=== PATIENT | male | born 1955 | race Caucasian/White ===

== ENCOUNTER 2018-12-04 16:04 | Emergency (ER) | payer BC ==
--- OUTSIDE RECORDS SUMMARY | 2018-12-04 16:08 | XMS REPORT | Continuity of Care Document ---
:1955 External Reference #:[id number] Author Name Isamar Valdes Care Team Providers Name Role Phone Britney Urbina MD Primary Care Physician Unavailable Payers Date Identification Numbers Payment Provider Subscriber Policy Number: [id number] [facility] Camelia Mead PayID: [id number] [address] [place] [address] Problems Active Problems Provider Date Gastroesophageal reflux disease Maura Ricardo M.D., JAKE Onset: 02/17/2011 Hyperlipidemia Maura Ricardo M.D., JAKE Onset: 02/17/2011 Bicuspid aortic valve Britney Urbina M.D. Onset: 05/10/2014 Intrinsic asthma Britney Urbina M.D. Onset: 05/10/2014 Allergic rhinitis Britney Urbina M.D. Onset: 05/10/2014 Anxiety disorder Britney Urbina M.D. Onset: 05/10/2014 Note: used to be depressed /imipramine controls sx of anxiety Family history of renal cell carcinoma Britney Urbina M.D. Onset: 05/10/2014 Note: brother at age 62 Aortic valve disorder Blayne Weir M.D., [facility], [facility] Onset: 07/25/2014 Note: bicuspid aortic valve s/p AVR Encounter for planned postprocedural Zurdo Seymour M.D., [facility], [facility] Onset: wound closure Multi vessel coronary artery disease Britney Urbina M.D. Onset: 11/03/2016 Cyst of kidney Britney Urbina M.D. Onset: 02/03/2017 Note: L complex cyst Thoracic aortic ectasia Blayne Weir M.D., [facility], Onset: 04/28/2017 [facility] Obstructive sleep apnea syndrome Stephanie Garvin DNP, RN, [facility] Onset: Secondary hypertension Stephanie Garvin DNP, RN, [facility] Onset: 08/05/2017 Note: NSAIDS Psoriasis Britney Urbina M.D. Onset: 04/19/2018 Heart valve replacement Blayne Weir M.D., [facility] Onset: 08/09/2018 Inactive Problems Aortic valve stenosis Britney Urbina M.D. Onset: 05/10/2014 Inactive: 12/31/2016 Note: severe by echo 07/04 Resolved Problems Difficulty breathing Blayne Weir M.D., [facility] Onset: 07/25/2014 Resolved: 04/19/2018 Family History Date Family Member(s) Observation Comments General Kidney Cancer brother at age 62 General Hypertension General Diabetes General [place] : (age 49 Father due to [place] Years) Father Diabetes Type II : (age 46 Mother due to pulmonary Years) embolism Children 4 First Brother due to Cancer () - metastatic RCC Social History Type Date Description Comments Sex Unknown Marital Status 2 Times Marital Status Lives With Alone 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 Tobacco Use Start: Unknown Never Smoked Cigarettes Smoking Status Reviewed: 11/08/18 Never Smoked Cigarettes ETOH Use Consumes 2 glasses of wine per day Tobacco Use Start: Unknown Patient has never smoked Recreational Drug Use Denies Drug Use Exercise Type/Frequency Walks daily 30 mins to hr per day Allergies, Adverse Reactions, Alerts Active Allergies Reaction Severity Comments Date Keflex dirrehea Moderate 02/17/2011 Pollen 07/25/2014 Bee Sting anaphylaxis to yellow jacket 05/02/2015 Latex swelling 01/21/2017 Medications Active Medications SIG Qnty Indications Ordering Date Provider Amlodipine Besylate 1 by mouth every day 90tabs I10 Britney Urbina, 2018 M.D. 10mg Tablets Alprazolam take 1 tablet by 30tabs F41.1 Elizabeth Madden, 07/21/2018 1mg mouth 2 times a day N.P. Tablets if needed for anxiety Shingrix intramuscular x 1 1units Britney Urbina, 04/19/2018 50mcg/0.5ML then repeat in 4 M.D. Suspension Rec months Amoxicillin take 4 tablets by 4tabs Blayne Kenyon 12/29/2017 500mg mouth 1 hour before Fox Weir, Tablets dental procedure THAI SKY Atorvastatin Calcium take 1 tablet by 90tabs Britney Urbina, 11/26/2017 mouth once daily at M.D. 20mg Tablets bedtime Omeprazole 1 by mouth bid 60caps Britney Urbina, 01/06/[address] Zelaya prn wasp stings Unknown 0.15mg/0.15ML Solution Auto-Inject Probiotic 1 by mouth every day Unknown Capsules Aspir-81 1 by mouth every day Unknown 81mg Tablets Multi-Vitamin 1 by mouth every day Unknown Tablets History Medications Metoprolol Tartrate 1 by mouth once a 90tabs I25.10 Blayne Kenyon 11/01/2018 - day Fox Weir, 11/01/2018 75mg Tablets THAI SKY Amlodipine Besylate 1 by mouth every 90tabs I10 Britney Urbina, 2018 - 5mg day M.D. 11/02/2018 Tablets Ciprofloxacin HCL 1 tab by mouth 56tabs N41.1 Britney Urbina, 11/04/2017 - 500mg twice a day X 28 M.D. 12/02/2017 Tablets days Sulfamethoxazole/Trim 1 tablet by mouth 60tabs N41.0 Bao Stanton NP 2017 - ethoprim DS every 12 hours x 10/17/2017 800-160mg 4 weeks Tablets Prednisone 1 tab at 13 hour 3tabs Britney Urbina, 04/01/2017 - 50mg Tablets before the M.D. 06/10/2017 procedure , then at 7 hours then at [address] scan Benadryl Allergy take 1 tablets 1tabs Britney Urbina, 04/01/2017 - 25mg once 1 hour M.D. 08/04/[address] scan Dulera 2 puff twice a R05 Britney Urbina, 01/21/2017 - 200-5mcg/Act day pRn M.D. 08/08/2018 Aerosol Sertraline HCL 1/2 by mouth 30tabs F41.9 Britney Urbina, 01/21/2017 - 50mg every day X 2 wks M.D. 06/10/2017 Tablets then once a day (Not Taking) Amoxicillin take 4 tablets by 4tabs Blayne Kenyon 01/15/2017 - 500mg mouth 1 hour Fox Weir, 08/04/2017 Tablets before dental FACC, FASNC procedure Azelastine HCL no longer taking 30ml J30.9 Britney Urbina, 01/12/2017 - (Nasal) M.D. 01/21/2017 0.15% Solution Esomeprazole 1 by mouth bid 60caps K21.9 Britney Urbina, 01/01/2017 - Magnesium M.D. 01/06/[address] Castelan no longer taking 8.700gm J30.9 Britney Urbina, 01/01/2017 - 80mcg/Act Aerosol M.D. 01/21/2017 Dulera no longer taking 8.800gm R05 Britney Urbina, 01/01/2017 - 100-5mcg/Act M.D. 01/21/2017 Aerosol Metoprolol Succinate 1 and a 1/2 135tabs I25.10 Blayne Kenyon 12/31/2016 - ER tablet (75 mg) by Fox Weir, 11/01/2018 50mg Tablets ER 24HR mouth every day FACC, FASNC Proair Respiclick no longer taking 1units R05 Britney Urbina, 12/25/2016 - M.D. 01/21/2017 108(90Base) mcg/Act Aerosol Fluticasone 2 sprays each 16units J01.90 Britney Urbina, 12/25/2016 - Propionate nostril qd M.D. 01/01/2017 50mcg/Act Suspension Furosemide take 1 tablet by Unknown 12/14/2016 - 40mg Tablets mouth once daily 12/21/2016 Potassium Chloride once a day Unknown 12/14/2016 - Maria L ER 12/21/2016 20Meq Tablets ER Omeprazole 1 by mouth bid 60caps K21.9 Britney Urbina, 07/16/2016 - 40mg M.D. 08/04/2016 Capsules Omeprazole 1 by mouth every 90caps Britney Urbina, 05/07/2016 - 40mg day M.D. 07/16/2016 Capsules Nexium 1 by mouth every 30caps K21.9 Britney Urbina, 05/01/2016 - 40mg Capsules DR day M.D. 05/07/2016 Amlodipine Besylate 1 by mouth every 90tabs K21.9 Susi Cronin MD 2016 - day. 10/11/2018 2.5mg Tablets Nexium 1 by mouth every Unknown 03/17/2016 - 20mg Capsules DR day 05/01/2016 Benzonatate one by mouth 30caps J01.90 Bao Stanton NP 03/12/2015 - 200mg three times daily 03/27/2015 Capsules as needed for cough Fluticasone 2 sprays each 16units J01.90 Bao Stanton NP 03/12/2015 - Propionate nostril qd for 2 03/27/2015 50mcg/Act weeks Suspension Augmentin 1 tablet by mouth 20tabs J01.90 Bao Stanton NP 03/12/2015 - 875-125mg q12 hours for 10 03/27/2015 Tablets days Trimethoprim two drops left 10ml H10.022 Bao Stanton NP 03/12/2015 - Sulfate/Polymyxin B eye 4 times a day 03/19/2015 Sulfate for 7 days. 83731-7.1Unit/ML-% Solution Atorvastatin Calcium take one tablet 90tabs E78.0 Britney Urbina, 2014 - by mouth at M.D. 11/03/2017 20mg Tablets bedtime Alprazolam take 1 tablet by 30tabs K59.00 Britney Urbina, 01/22/2015 - 1mg Tablets mouth 2 times a M.D. 08/04/2017 day if needed for anxiety Amlodipine Besylate 1 by mouth every 90tabs K21.9 Britney Urbina, 2014 - 5mg day M.D. 05/01/2016 Tablets Fluticasone 1 act each 16gm 786.2 Zsofia Eliecer, 03/22/2014 - Propionate nostril twice [employer] 05/10/2014 50mcg/Act daily Suspension Flovent HFA 2 puffs bid 12gm 786.2 Zsofia Eliecer, 03/22/2014 - 110mcg/Act [facility] 05/10/2014 Aerosol Patanol 1 drop each eyes 5ml 786.2 Michael Gonzáles, 03/22/2014 - 0.1% Solution bid [facility] 05/10/2014 Benzonatate take 1 tab by 30caps 786.2 Michael Gonzáles, 03/22/2014 - 100mg mouth three times [facility] 05/10/2014 Capsules a day as needed for cough Guaifenesin ac 10 milliliters by QS 786.2 Michael Gonzáles, 03/22/2014 - mouth at bedtime [facility] 05/10/2014 100-10mg/5ML Syrup for 7 days. Pantoprazole Sodium 1 tab po q day. 530.81 Michael Gonzáles, 03/22/2014 - [facility] 05/10/2014 40mg Solution Rec Proair HFA two puffs every 4 8.500gm 995.3 Britney Ciara, 10/04/2013 - 108(90Base) hours as needed M.D. 05/10/2014 mcg/Act Aerosol for wheeze and chest tightness. Proair HFA two puffs every 4 8.500gm 995.3 Yael Rose, 10/04/2013 - 108(90Base) hours as needed M.D. 10/04/2013 mcg/Act Aerosol for wheeze and chest tightness. Xyzal take 1 tablet at 30tabs 995.3 Yael Rose, 10/04/2013 - 5mg Tablets bedtime for M.D. 03/22/2014 allergy symptoms Advair Diskus 1 puff by mouth 60units 995.3 Yael Rose, 10/04/2013 - twice a day M.D. 03/22/2014 250-50mcg/Dose Aerosol Azithromycin two tabs day one, 6tabs 466.0 Elizabeth Madden, 12/21/2012 - 250mg one daily till N.P. 12/31/2012 Tablets gone Prednisone 4 tablets po for 40tabs 466.0 Elizabeth Madden, 12/21/2012 - 10mg Tablets 4 days 3 tablets N.P. 01/06/2013 po for 4 days 2 tablets po for 4 days 1 tablet po for 4 days Robitussin ac 1 - 2 tsp every 4 466.0 Elizabeth Madden, 12/21/2012 - 120 cc hours as needed N.P. 01/04/2013 for cough Amoxicillin/Clavulana 1 by mouth twice 20tabs 461.9 Maura Haleigh, 2012 - te Potassium a day M.D., FACP 12/21/2012 500-125mg Tablets Ipratropium Pax 2 sprays in each 15ml 461.9 Yael Rose, 04/07/2012 - nostril 3-4 M.D. 03/22/2014 0.06% Solution times/day for relief of cold symptoms (limit 4 days) Azithromycin two tabs day one, 6tabs 461.9 Yael Rose, 04/07/2012 - 250mg one daily till M.D. 04/28/2012 Tablets gone Fluticasone instill 1 spray 16units 461.9 Britney Urbina, 04/07/2012 - Propionate into each nostril M.D. 05/10/2014 50mcg/Act once daily if Suspension needed Atorvastatin Calcium take 1 tablet by 30tabs Torres Israel NP 03/26/2012 - mouth at bedtime 02/06/2015 10mg Tablets Flovent HFA take 2 12units 995.3 Maura Haleigh, 02/25/2012 - 110mcg/Act inhalations by M.D., FACP 10/04/2013 Aerosol mouth twice a day Robitussin ac 1 - 2 tsp q 4 hrs 120cc Elizabeth Madden, 02/06/2012 - prn cough N.P. 02/20/2012 Medrol Dosepak as directed 1pak Elizabeth Madden, 02/06/2012 - 4mg N.P. 02/12/2012 Tablets Azithromycin two tabs day one, 6tabs 466.0 Elizabeth Madden, 02/02/2012 - 250mg one daily till N.P. 02/12/2012 Tablets gone Ventolin HFA 1 to 2 1inhaler 466.0 Maura Ricardo, 02/02/2012 - inhalations every M.D., FACP 03/03/2012 108(90Base) mcg/ac 4 hours as needed Aerosol Benzonatate one by mouth 30caps 466.0 Elizabeth Madden, 02/02/2012 - 200mg three times daily N.P. 02/12/2012 Capsules as needed for cough Omeprazole 1 po qd 90caps 530.81 Maura Ricardo, 10/23/2011 - 20mg M.D., [facility] 03/22/[address] Sulfamethoxazole/Trim 1 po bid 28tabs 602.8 Maura Ricardo, 10/23/2011 - ethoprim DS M.D., [facility] 02/02/2012 800-160mg Tablets Prednisone 4 tabs po qd x 4d 50tabs 388.70 Maura Ricardo, 07/10/2011 - 5mg Tablets then 3 tabs po qd M.D., [facility] 07/23/2011 x 3d then 2 tabs po qd x 2d then 1 tab po qd x 1 d then 1/2 tab po qd x 2d. Flovent HFA 2 puffs twice 1units 786.2 Maura Ricardo, 07/03/2011 - 44mcg/Act daily for 10 days M.D., [facility] 07/23/2011 Aerosol Nasonex 2 sprays to each 1units 786.2 Maura Ricardo, 07/03/2011 - 50mcg/Act nostril once M.D., [facility] 08/14/2011 Suspension daily Robitussin ac 1 -2 tsp q 4 120cc Maura Ricardo, 06/30/2011 - Solution hours prn haseebugh M.D., [facility] 07/23/2011 Ventolin HFA 1 to 2 1inhaler Maura Ricardo, 06/30/2011 - inhalations every M.D., [facility] 08/14/2011 108(90Base) mcg/ac 4 hours as needed Aerosol Azithromycin two tabs day one, 6tabs Maura Ricardo, 06/30/2011 - 250mg one daily till M.D., [facility] 07/03/2011 Tablets gone Azithromycin two tabs day one, 6tabs Maura Ricardo, 06/03/2011 - 250mg one daily till M.D., [facility] 06/13/2011 Tablets gone Tobramycin Sulfate 2 gtts in each 5ml 372.00 Celestina 05/28/2011 - 0.3% eye every 4 hours Fox Arnett 2011 Solution while awake for 7 days Labetalol HCL take 1 tablet by 60tabs Blayne Kenyon 09/09/2010 - 200mg mouth twice a Fox Weir, 12/31/2016 [facility] Pantoprazole 2 cap by mouth 90units 530.81 Maura Ricardo, 03/04/2010 - 40mgM every day as M.D., FACP 10/23/2011 needed Imipramine HCL take 1 tablet 90tabs Nic Altman 02/04/2010 - 25mg once daily Fox Nino,[facility] 02/06/2015 Tablets Lipitor 1 tablet every 90tabs Maura Haleigh, 01/22/2010 - 10mg Tablets night M.DFady, [facility] 03/26/2012 Mometasone Furoate once a day Unknown - 08/04/2017 50mcg/Act Suspension Levocetirizine take 1 tablet by Unknown - Dihydrochloride mouth once daily 04/21/2017 5mg if needed Tablets Mometasone Furoate Ever, - MD Bryon 01/21/2017 50mcg/Act Suspension Mometasone Furoate instill 2 sprays Unknown - into each nostril 01/21/2017 50mcg/Act Suspension once daily Robitussin Chest 10 milliliters by Unknown - Congestion mouth every 4 01/01/2017 100mg/5ML hours as needed Syrup Labetalol HCL 1 by mouth twice Unknown - Tablets a day will be 01/04/2017 replaced with Metoprolol later today Erica Allergy not taking Unknown - 01/21/2017 Oxycodone-Acetaminoph not taking Unknown - en 01/21/2017 5-325mg Tablets Nexium 2 tabs daily K21.9 Unknown - 20mg Capsules 01/21/2017 Metamucil as needed Unknown - 28.3% Powder 08/04/2017 Proair HFA two puffs every 4 8.5units Britney Urbina, - 108(90Base) hours as needed M.DFady 09/23/2014 mcg/Act Aerosol for wheeze and chest tightness. Flovent HFA inhale 2 puffs by 1units Britney Urbina, - 110mcg/Act mouth two times a M.D. 08/31/2014 Aerosol day Nexium 1 by mouth every 30caps Unknown - 40mg Capsules DR day 05/01/2016 Zyrtec Allergy 1 by mouth every Unknown - 10mg day 12/29/2016 Tablets Montelukast Sodium Zurdo Cordova, - 10mg MD 05/10/2014 Tablets Sulfamethoxazole/Trim take one tablet Unknown - ethoprim by mouth twice a 10/22/2011 400-80mg day for 2 wks Tablets Amoxicillin tid po for 10 30caps Unknown - 250mg days-need for 05/28/2011 Capsules dental procedure Immunizations CPT Code Status Date Vaccine Reaction Lot # [id number] Given 03/05/2018 Influenza Virus Vaccine, No immediate [id number] Quadrivalent, Split, reaction...jh Preservative Free 06991 Given 01/21/2017 Pneumonia Vaccine [id number] 60140 Given 01/21/2017 Influenza Virus Vaccine, [id number] Quadrivalent, Split, Preservative Free 05528 Given 05/01/2016 Influ Virus Vaccine, [id number] Quadrivalent, Split Virus, [place] [address] Given 02/06/2015 Influenza Virus Vaccine, [id number] Quadrivalent, Split, Preservative Free [id number] Given 04/29/2013 Fluzone Vaccine [id number] Given 02/25/2012 Fluvirin Im 3Yrs And Older [id number] 31632 Given 10/23/2011 Zoster (Zostavax) [id number] 61101 Given 10/23/2011 Tdap - [id number] Tetanus/Diptheria/Acellular Pertussis 30192 Given 02/17/2011 Influenza Virus 3Yrs & Over [id number] 63875 Given 05/03/2009 Influenza Virus Vaccine, Pandemic Formulation 75014 Given 05/03/2009 Influenza Virus 3Yrs & Over 72638 Given 05/03/2009 Administration Swine Flu Shot 39075 Given 02/11/2008 Influenza Virus 3Yrs & Over Vital Signs Date Vital Result Comment 11/08/2018 12:06pm Height 71.5 inches 5'11.50" Weight 247.00 lb Heart Rate 78 /min BP Systolic Sitting 138 mmHg Rue reg cuff BP Diastolic Sitting 84 mmHg Rue reg cuff Body Temperature 97.5 F O2 % BldC Oximetry 98 % BMI (Body Mass Index) 34.0 kg/m2 11/01/2018 1:07pm Heart Rate 69 /min BP Systolic 154 mmHg left arm, 141/84 BP Diastolic 87 mmHg left arm, 141/84 Body Temperature 97.6 F O2 % BldC Oximetry 99 % 10/11/2018 12:00pm Height 71.5 inches 5'11.50" Weight 247.12 lb Heart Rate 61 /min BP Systolic 152 mmHg BP Diastolic 88 mmHg Pain Level 3 O2 % BldC Oximetry 98 % BMI (Body Mass Index) 34.0 kg/m2 08/09/2018 1:01pm Height 71.5 inches 5'11.50" Weight 250.38 lb w/o shoes Heart Rate 66 /min reg BP Systolic Sitting 130 mmHg Rue reg cuff BP Diastolic Sitting 88 mmHg Rue reg cuff BP Systolic Standing 145 mmHg Rue reg cuff BP Diastolic Standing 88 mmHg Rue reg cuff BP Systolic Recheck 163 mmHg home BP BP Diastolic Recheck 103 mmHg home BP BMI (Body Mass Index) 34.4 kg/m2 07/21/2018 10:10am Height 71.5 inches 5'11.50" Weight 256.25 lb Heart Rate 72 /min BP Systolic 145 mmHg BP Diastolic 86 mmHg Body Temperature 97.3 F O2 % BldC Oximetry 98 % BMI (Body Mass Index) 35.2 kg/m2 04/19/2018 11:59am Height 71.5 inches 5'11.50" Weight 249.00 lb Heart Rate 96 /min BP Systolic Sitting 124 mmHg BP Diastolic Sitting 88 mmHg O2 % BldC Oximetry 98 % BMI (Body Mass Index) 34.2 kg/m2 03/05/2018 3:53pm Height 71.5 inches 5'11.50" Weight 253.00 lb Heart Rate 80 /min BP Systolic 128 mmHg BP Diastolic 80 mmHg Body Temperature 96.4 F O2 % BldC Oximetry 96 % BMI (Body Mass Index) 34.8 kg/m2 11/04/2017 8:39am Weight 249.00 lb Heart Rate 70 /min BP Systolic 138 mmHg BP Diastolic 72 mmHg Body Temperature 97.7 F O2 % BldC Oximetry 98 % 09/18/2017 1:35pm Height 71 inches 5'11" Weight 247.00 lb Heart Rate 73 /min BP Systolic 147 mmHg BP Diastolic 94 mmHg BP Systolic Recheck 142 mmHg BP Diastolic Recheck 88 mmHg Body Temperature 96.8 F O2 % BldC Oximetry 99 % BMI (Body Mass Index) 34.4 kg/m2 08/05/2017 1:39pm Height 71 inches 5'11" Weight 247.00 lb Heart Rate 70 /min BP Systolic Sitting 140 mmHg Rue large cuff BP Diastolic Sitting 98 mmHg Rue large cuff BP Systolic Recheck 172 mmHg Rue large cuff BP Diastolic Recheck 98 mmHg Rue large cuff Respiratory Rate 16 /min O2 % BldC Oximetry 98 % On Ra BMI (Body Mass Index) 34.4 kg/m2 06/11/2017 8:21am Height 71 inches 5'11" Weight 246.00 lb Heart Rate 88 /min BP Systolic Sitting 126 mmHg BP Diastolic Sitting 88 mmHg Respiratory Rate 14 /min O2 % BldC Oximetry 98 % BMI (Body Mass Index) 34.3 kg/m2 04/28/2017 1:49pm Weight 226.00 lb without shoes Heart Rate 76 /min BP Systolic Sitting 130 mmHg Rue reg cuff BP Diastolic Sitting 90 mmHg Rue reg cuff BP Systolic Standing 126 mmHg Rue reg cuff BP Diastolic Standing 90 mmHg Rue reg cuff Respiratory Rate 17 /min Ejection Fraction 55-60% date 04/24/17 ECHO 01/21/2017 11:27am Weight 220.00 lb Heart Rate 78 /min BP Systolic Sitting 120 mmHg BP Diastolic Sitting 80 mmHg Body Temperature 97.3 F O2 % BldC Oximetry 97 % 01/12/2017 1:23pm Weight 222.00 lb Heart Rate 75 /min BP Systolic Sitting 128 mmHg BP Diastolic Sitting 82 mmHg Body Temperature 96.0 F O2 % BldC Oximetry 98 % 01/01/2017 10:51am Weight 229.00 lb Heart Rate 88 /min BP Systolic Sitting 104 mmHg BP Diastolic Sitting 78 mmHg Body Temperature 96.9 F O2 % BldC Oximetry 96 % 12/31/2016 1:56pm Height 71 inches 5'11" Weight 226.50 lb with shoes Heart Rate 88 /min BP Systolic Sitting 126 mmHg Lue reg cuff BP Diastolic Sitting 80 mmHg Lue reg cuff BP Systolic Standing 100 mmHg Lue reg cuff BP Diastolic Standing 70 mmHg Lue reg cuff Respiratory Rate 16 /min BMI (Body Mass Index) 31.6 kg/m2 Ejection Fraction 59% 07/09/2016-echo 12/25/2016 11:32am Height 71 inches 5'11" Weight 232.12 lb Heart Rate 67 /min BP Systolic 118 mmHg BP Diastolic 70 mmHg Body Temperature 97.6 F O2 % BldC Oximetry 95 % BMI (Body Mass Index) 32.4 kg/m2 11/03/2016 10:23am Height 71 inches 5'11" Weight 246.00 lb w/ shoes Heart Rate 72 /min Reg BP Systolic Sitting 110 mmHg Lue, lg cuff BP Diastolic Sitting 70 mmHg Lue, lg cuff BP Systolic Standing 112 mmHg Lue BP Diastolic Standing 76 mmHg Lue Respiratory Rate 16 /min BMI (Body Mass Index) 34.3 kg/m2 Ejection Fraction 59% as of 07/09/16 echo 10/08/2016 9:45am Weight 248.25 lb Heart Rate 87 /min BP Systolic 132 mmHg BP Diastolic 88 mmHg Body Temperature 97.1 F O2 % BldC Oximetry 95 % 10/01/2016 9:15am Height 71 inches 5'11" Weight 249.00 lb with shoes Heart Rate 76 /min BP Systolic Sitting 130 mmHg Rue lg cuff BP Diastolic Sitting 90 mmHg Rue lg cuff BP Systolic Standing 128 mmHg Rue lg cuff BP Diastolic Standing 90 mmHg Rue lg cuff Respiratory Rate 17 /min BMI (Body Mass Index) 34.7 kg/m2 Ejection Fraction 59% date 07/09/16 ECHO 09/08/2016 8:34am Height 71 inches 5'11" Weight 250.00 lb Heart Rate 86 /min BP Systolic Sitting 136 mmHg right arm, large cuff BP Diastolic Sitting 90 mmHg right arm, large cuff Respiratory Rate 16 /min O2 % BldC Oximetry 96 % Ra BMI (Body Mass Index) 34.9 kg/m2 Neck Circumference in inches 16.5 07/16/2016 8:40am Weight 249.00 lb Heart Rate 82 /min BP Systolic Sitting 134 mmHg BP Diastolic Sitting 86 mmHg Respiratory Rate 15 /min O2 % BldC Oximetry 98 % 05/01/2016 8:43am Height 70 inches 5'10" Weight 247.00 lb Heart Rate 77 /min BP Systolic Sitting 138 mmHg BP Diastolic Sitting 92 mmHg Body Temperature 98.4 F O2 % BldC Oximetry 98 % BMI (Body Mass Index) 35.4 kg/m2 05/10/2015 8:31am Weight 239.00 lb Heart Rate 79 /min BP Systolic Sitting 120 mmHg BP Diastolic Sitting 80 mmHg Body Temperature 96.8 F O2 % BldC Oximetry 98 % 05/02/2015 1:40pm Weight 239.25 lb Heart Rate 73 /min BP Systolic Sitting 126 mmHg BP Diastolic Sitting 80 mmHg Body Temperature 97.5 F Pain Level 0 O2 % BldC Oximetry 98 % 03/12/2015 4:15pm Weight 245.00 lb Heart Rate 64 /min BP Systolic Sitting 128 mmHg BP Diastolic Sitting 82 mmHg Respiratory Rate 15 /min Body Temperature 98.5 F O2 % BldC Oximetry 98 % 02/22/2015 2:39pm Heart Rate 65 /min BP Systolic Sitting 127 mmHg BP Diastolic Sitting 86 mmHg 02/06/2015 9:11am Weight 243.25 lb Heart Rate 71 /min BP Systolic Sitting 161 mmHg BP Diastolic Sitting 95 mmHg Body Temperature 97.3 F O2 % BldC Oximetry 98 % 01/22/2015 3:00pm Height 70 inches 5'10" Weight 243.00 lb Heart Rate 68 /min BP Systolic Sitting 128 mmHg BP Diastolic Sitting 80 mmHg Respiratory Rate 13 /min Body Temperature 98.8 F O2 % BldC Oximetry 68 % BMI (Body Mass Index) 34.9 kg/m2 07/25/2014 1:52pm Height 70 inches 5'10" Weight 247.00 lb no shoes Heart Rate 76 /min BP Systolic 114 mmHg Ra, reg cuff BP Diastolic 78 mmHg Ra, reg cuff BP Systolic Sitting 116 mmHg LA, reg cuff BP Diastolic Sitting 76 mmHg LA, reg cuff BP Systolic Standing 116 mmHg LA BP Diastolic Standing 82 mmHg LA Respiratory Rate 16 /min BMI (Body Mass Index) 35.4 kg/m2 05/10/2014 12:58pm Height 70.5 inches 5'10.50" Weight 252.25 lb Heart Rate 89 /min BP Systolic Sitting 148 mmHg BP Diastolic Sitting 91 mmHg Body Temperature 95.1 F O2 % BldC Oximetry 95 % BMI (Body Mass Index) 35.7 kg/m2 03/22/2014 10:12am Height 71 inches 5'11" Weight 257.00 lb Heart Rate 80 /min BP Systolic Sitting 130 mmHg BP Diastolic Sitting 92 mmHg Body Temperature 96.8 F O2 % BldC Oximetry 99 % BMI (Body Mass Index) 35.8 kg/m2 10/04/2013 9:27am Height 71 inches 5'11" Weight 243.00 lb Heart Rate 82 /min BP Systolic Sitting 136 mmHg BP Diastolic Sitting 100 mmHg Body Temperature 97.5 F BMI (Body Mass Index) 33.9 kg/m2 12/21/2012 11:24am Weight 240.00 lb Heart Rate 78 /min BP Systolic Sitting 128 mmHg BP Diastolic Sitting 84 mmHg Body Temperature 96.4 F 04/28/2012 10:18am Height 71.5 inches 5'11.50" Heart Rate 80 /min BP Systolic Sitting 120 mmHg BP Diastolic Sitting 80 mmHg Body Temperature 98.0 F 04/07/2012 4:20pm Height 71.5 inches 5'11.50" Weight 236.00 lb Heart Rate 76 /min BP Systolic Sitting 132 mmHg BP Diastolic Sitting 84 mmHg Body Temperature 98.8 F BMI (Body Mass Index) 32.5 kg/m2 02/25/2012 8:54am Height 71.5 inches 5'11.50" Weight 234.00 lb Heart Rate 72 /min BP Systolic Sitting 122 mmHg BP Diastolic Sitting 76 mmHg BMI (Body Mass Index) 32.2 kg/m2 02/02/2012 3:37pm Height 71.5 inches 5'11.50" Weight 232.00 lb Heart Rate 80 /min BP Systolic Sitting 132 mmHg BP Diastolic Sitting 80 mmHg Body Temperature 98.7 F BMI (Body Mass Index) 31.9 kg/m2 10/23/2011 9:15am Height 71.5 inches 5'11.50" Weight 232.00 lb Heart Rate 84 /min BP Systolic Sitting 130 mmHg BP Diastolic Sitting 84 mmHg BMI (Body Mass Index) 31.9 kg/m2 08/14/2011 8:47am Height 71.5 inches 5'11.50" Weight 232.00 lb Heart Rate 76 /min BP Systolic Sitting 130 mmHg BP Diastolic Sitting 72 mmHg Body Temperature 98.7 F BMI (Body Mass Index) 31.9 kg/m2 07/10/2011 9:32am Height 71.5 inches 5'11.50" Weight 225.00 lb Heart Rate 72 /min BP Systolic Sitting 138 mmHg BP Diastolic Sitting 86 mmHg Body Temperature 98.0 F O2 % BldC Oximetry 97 % BMI (Body Mass Index) 30.9 kg/m2 07/03/2011 11:33am Height 71.5 inches 5'11.50" Weight 228.00 lb Heart Rate 82 /min BP Systolic Sitting 110 mmHg BP Diastolic Sitting 80 mmHg Body Temperature 98.3 F O2 % BldC Oximetry 97 % BMI (Body Mass Index) 31.4 kg/m2 06/30/2011 1:00pm Height 71.5 inches 5'11.50" Weight 230.00 lb Heart Rate 88 /min BP Systolic Sitting 154 mmHg BP Diastolic Sitting 78 mmHg Body Temperature 99.2 F BMI (Body Mass Index) 31.6 kg/m2 05/28/2011 9:59am Height 71.5 inches 5'11.50" Weight 228.00 lb Heart Rate 70 /min BP Systolic Sitting 132 mmHg BP Diastolic Sitting 80 mmHg Body Temperature 98.8 F BMI (Body Mass Index) 31.4 kg/m2 02/17/2011 10:49am Height 71.5 inches 5'11.50" Weight 230.00 lb Heart Rate 68 /min BP Systolic Sitting 134 mmHg BP Diastolic Sitting 78 mmHg BMI (Body Mass Index) 31.6 kg/m2 Results Test Date Facility Test Result H/L Range Note Urine Culture And 11/04/2017 [facility] Urine Culture SEE RESULT 1, [address] [place] [address] [phone] Ua Routine 11/04/2017 [facility] Ua Specific 1.015 [place] Ua PH 5 Ua Color orange Ua Appera clear Ua WBC - Ua Protein trace Ua Glucose norm Ua Ketones + Ua Bilirubin - Ua Urobilinogen norm Ua Nitrite - Ua Occult Blood trace Ua Routine 09/18/2017 [facility] Ua Specific [place] 1.010 Ua PH 7 Ua Color yellow Ua Appera dark Ua WBC neg Ua Protein trace Ua Glucose norm Ua Ketones neg Ua Bilirubin neg Ua Urobilinogen norm Ua Nitrite neg Ua Occult Blood trace Lipid Profile 05/15/2017 [facility] Triglycerides 88 mg/dL 3 (Trig/Chol/HDL) [address] [place] [address] [phone] Cholesterol 216 mg/dL 4 HDL Cholesterol 54.3 mg/dL 5 LDL Cholesterol 144 mg/dL 6 Comp Metabolic Panel 05/15/2017 [facility] Sodium 136 mmol/L N 133-[address] [place] [address] [phone] Potassium 4.2 mmol/L N 3.5-5.0 Chloride 102 mmol/L N 101-111 Co2 Carbon Dioxide 27 mmol/L N 22-32 Anion Gap 7 mmol/L N 2-11 Glucose 104 mg/dL High 70-100 Blood Urea Nitrogen 20 mg/dL N 6-24 Creatinine 0.98 mg/dL N 0.67-1.17 BUN/Creatinine Ratio 20.4 High 8-20 Calcium 9.0 mg/dL N 8.6-10.3 Total Protein 6.8 g/dL N 6.4-8.9 Albumin 4.0 g/dL N 3.2-5.2 Globulin 2.8 g/dL N 2-4 Albumin/Globulin Ratio 1.4 N 1-3 Total Bilirubin 0.40 mg/dL N 0.2-1.0 Alkaline Phosphatase 87 U/L N 34-104 Alt 24 U/L N 7-52 Ast 19 U/L N 13-39 Egfr Non- 77.8 >60 Egfr 100.0 >60 7 CBC Auto Diff 10/07/2016 [facility] White Blood 6.1 10^3/uL N 3.5-10.[address] [place] [address] [phone] Red Blood Count 4.43 10^6/uL N 4.0-5.4 Hemoglobin 12.9 g/dL Low 14.0-18.0 Hematocrit 38 % Low 42-52 Mean Corpuscular Volume 87 fL N 80-94 Mean Corpuscular Hemoglobin 29 pg N 27-31 Mean Corpuscular HGB Conc 34 g/dL N 31-36 Red Cell Distribution Width 14 % N 10.5-15 Platelet Count 181 10^3/uL N 150-450 Mean Platelet Volume 8 um3 N 7.4-10.4 Abs Neutrophils 3.5 10^3/uL N 1.5-7.7 Abs Lymphocytes 1.6 10^3/uL N 1.0-4.8 Abs Monocytes 0.5 10^3/uL N 0-0.8 Abs Eosinophils 0.4 10^3/uL N 0-0.6 Abs Basophils 0.1 10^3/uL N 0-0.2 Abs Nucleated RBC 0 10^3/uL N Granulocyte % 57.8 % N 38-83 Lymphocyte % 26.7 % N 25-47 Monocyte % 8.6 % N 1-9 Eosinophil % 6.1 % High 0-6 Basophil % 0.8 % N 0-2 Nucleated Red Blood Cells % 0.1 N Cath Panel 10/07/2016 [facility] Partial 35.7 seconds N 26.0- 36.[address] [place] [address] PTT [phone] Inr/Protime 10/07/2016 [facility] Inr 0.90 N 0.89-1.[address] [place] [address] [phone] Basic Metabolic 10/07/2016 [facility] Sodium 137 mmol/L N 133- [address] [place] [address] [phone] Potassium 4.0 mmol/L N 3.5-5.0 Chloride 104 mmol/L N 101-111 Co2 Carbon Dioxide 26 mmol/L N 22-32 Anion Gap 7 mmol/L N 2-11 Glucose 119 mg/dL High 70-100 Blood Urea Nitrogen 16 mg/dL N 6-24 Creatinine 0.86 mg/dL N 0.67-1.17 BUN/Creatinine Ratio 18.6 N 8-20 Calcium 8.7 mg/dL N 8.6-10.3 Egfr Non- 90.4 N >60 Egfr 116.3 N >60 10 Lipid Profile 05/18/2015 [facility] Triglycerides 136 mg/dL N 11 (Trig/Chol/HDL) [address] [place] [address] [phone] Cholesterol 170 mg/dL N 12 HDL Cholesterol 44.3 mg/dL N 13 LDL Cholesterol 99 mg/dL N 14 Laboratory test 05/18/2015 [facility] Creatine 183 U/L N 10- [address] Kinase(CK) [place] [address] [phone] Hepatitis C Antibody Nonreactive N Nonreactive 16 Ua Routine 05/10/2015 [facility] Ua Specific [place] 1.020 Ua PH 6 Ua Color yellow Ua Appera dark Ua WBC neg Ua Protein neg Ua Glucose neg Ua Ketones neg Ua Bilirubin neg Ua Urobilinogen neg Ua Nitrite neg Ua Occult Blood trace CBC Auto Diff 01/25/2015 [facility] White Blood 5.5 10^3/uL N 4.8-10.[address] [place] [address] [phone] Red Blood Count 4.81 10^6/uL N 4.0-5.4 Hemoglobin 14.0 g/dL N 14.0-18.0 Hematocrit 41 % Low 42-52 Mean Corpuscular Volume 86 fL N 80-94 Mean Corpuscular Hemoglobin 29 pg N 27-31 Mean Corpuscular HGB Conc 34 g/dL N 31-36 Red Cell Distribution Width 14 % N 10.5-15 Platelet Count 233 10^3/uL N 150-450 Mean Platelet Volume 8 um3 N 7.4-10.4 Abs Neutrophils 2.7 10^3/uL N 1.5-7.7 Abs Lymphocytes 1.9 10^3/uL N 1.0-4.8 Abs Monocytes 0.4 10^3/uL N 0-0.8 Abs Eosinophils 0.3 10^3/uL N 0-0.6 Abs Basophils 0.1 10^3/uL N 0-0.2 Abs Nucleated RBC 0 10^3/uL N Granulocyte % 50.1 % N 38-83 Lymphocyte % 35.6 % N 25-47 Monocyte % 7.8 % N 1-9 Eosinophil % 5.5 % N 0-6 Basophil % 1.0 % N 0-2 Nucleated Red Blood Cells % 0.1 N Comp Metabolic Panel 01/25/2015 [facility] Sodium 135 mmol/L N 133-[address] [place] [address] [phone] Potassium 4.2 mmol/L N 3.5-5.0 Chloride 102 mmol/L N 101-111 Co2 Carbon Dioxide 26 mmol/L N 22-32 Anion Gap 7 mmol/L N 2-11 Glucose 88 mg/dL N 70-100 Blood Urea Nitrogen 15 mg/dL N 6-24 Creatinine 1.04 mg/dL N 0.67-1.17 BUN/Creatinine Ratio 14.4 N 8-20 Calcium 9.0 mg/dL N 8.6-10.3 Total Protein 6.9 g/dL N 6.4-8.9 Albumin 4.4 g/dL N 3.2-5.2 Globulin 2.5 g/dL N 2-4 Albumin/Globulin Ratio 1.8 N 1-3 Total Bilirubin 0.70 mg/dL N 0.2-1.0 Alkaline Phosphatase 68 U/L N 34-104 Alt 25 U/L N 7-52 Ast 20 U/L N 13-39 Egfr Non- 73.1 N >60 Egfr 94.0 N >60 18 Lipid Profile 01/25/2015 [facility] Triglycerides 101 mg/dL N 19 (Trig/Chol/HDL) [address] [place] [address] [phone] Cholesterol 204 mg/dL N 20 HDL Cholesterol 37.9 mg/dL N 21 LDL Cholesterol 146 mg/dL N 22 Laboratory test 01/25/2015 [facility] TSH (Thyroid 1.06 N 0.34 -5.60 23 finding [facility] [employer] Stim Horm) ?IU/[place] [address] [phone] Urine Culture & 10/23/2011 [facility] M [address] ------ [place] [address] <SEE NOTE> [phone] Laboratory test 06/30/2011 [facility] Bordetella [address] Flow[address] Pertussis ------ [place] [address] <SEE NOTE> [phone] 1 [id number] 2 SEE RESULT BELOW Name: CAMELIA MEAD : [address]: Britney Urbina MD Acct: [id number] Unit: [id number] AGE: 62 Location: [facility] Re11/04/17 SEX: M Status: REG REF SPEC: [id number] DOUG: 11/04/[address] [facility] [address]: Britney Urbina MD REQ: [id number] RECD: 11/04/17 STATUS: COMP _ SOURCE: URINE SPDESC: ORDERED: Urine Culture COMMENTS: [id number] Urine Source: Random Procedure Result Reported Site Urine Culture Final 11/05/17- 1222 ML No Growth (<1,000 CFU/mL) * ML - Main Lab . END OF REPORT DEPARTMENT OF PATHOLOGY, [address] [place] [address] Derrick Astudillo M.D. Director [facility] # [id number] 3 Desirable: <150 Borderline High: 150-199 High: 200-499 Very High: >500 4 Desirable: <200 Borderline High: 200-239 High: >239 5 Low: <40 Desirable: 40-60 High: >60 6 Desirable: <100 Near Optimal: 100-129 Borderline High: 130-159 High: 160-189 Very High: >189 7 Because ethnic data is not always readily available, this report includes an eGFR for both -Americans and non- Americans. The National Kidney Disease Education Program (NKDEP) does not endorse the use of the MDRD equation for patients that are not between the ages of 18 and 70, are , have extremes of body size, muscle mass, or nutritional status, or are non- or non-. According to the National Kidney Foundation, irrespective of diagnosis, the stage of the disease is based on the level of kidney function: Stage Description GFR(mL/min/1.73 m(2)) 1 Kidney damage with normal or decreased GFR 90 2 Kidney damage with mild decrease in GFR 60-89 3 Moderate decrease in GFR 30-59 4 Severe decrease in GFR 15-29 5 Kidney failure <15 (or dialysis) 8 CALL RESULTS TO EXT: [id number] 9 CALL RESULTS TO EXT: [id number] 10 Because ethnic data is not always readily available, this report includes an eGFR for both -Americans and non- Americans. The National Kidney Disease Education Program (NKDEP) does not endorse the use of the MDRD equation for patients that are not between the ages of 18 and 70, are , have extremes of body size, muscle mass, or nutritional status, or are non- or non-. According to the National Kidney Foundation, irrespective of diagnosis, the stage of the disease is based on the level of kidney function: Stage Description GFR(mL/min/1.73 m(2)) 1 Kidney damage with normal or decreased GFR 90 2 Kidney damage with mild decrease in GFR 60-89 3 Moderate decrease in GFR 30-59 4 Severe decrease in GFR 15-29 5 Kidney failure <15 (or dialysis) 11 Desirable <150 Borderline high 150-199 High 200-499 Very High >500 12 Desirable <200 Borderline high 200-239 High >239 13 Low <40 Desirable: 40-60 High: >60 14 Desirable: <100 mg/dL Near Optimal: 100-129 mg/dL Borderline High: 130-159 mg/dL High: 160-189 mg/dL Very High: >189 mg/dL 15 FASTING 12 HOUR 16 FASTING 12 HOUR 17 PT IS FASTING 18 Because ethnic data is not always readily available, this report includes an eGFR for both -Americans and non- Americans. The National Kidney Disease Education Program (NKDEP) does not endorse the use of the MDRD equation for patients that are not between the ages of 18 and 70, are , have extremes of body size, muscle mass, or nutritional status, or are non- or non-. According to the National Kidney Foundation, irrespective of diagnosis, the stage of the disease is based on the level of kidney function: Stage Description GFR(mL/min/1.73 m(2)) 1 Kidney damage with normal or decreased GFR 90 2 Kidney damage with mild decrease in GFR 60-89 3 Moderate decrease in GFR 30-59 4 Severe decrease in GFR 15-29 5 Kidney failure <15 (or dialysis) 19 Desirable <150 Borderline high 150-199 High 200-499 Very High >500 20 Desirable <200 Borderline high 200-239 High >239 21 Low <40 Desirable: 40-60 High: >60 22 Desirable: <100 mg/dL Near Optimal: 100-129 mg/dL Borderline High: 130-159 mg/dL High: 160-189 mg/dL Very High: >189 mg/dL 23 PT IS FASTING 24 RUN DATE: 10/25/11 [facility] NMI LIVE PAGE 1 RUN TIME: 856 Specimen Inquiry RUN USER: INTERFACE Name: CAMELIA MEAD Status: REG REF Re10/23/11 Age/Sex: 56/M Unit#: [id number] Location: [facility] : 55 SPEC #: [id number] DOUG: 10/23/11 STATUS: COMP REQ #: [id number] RECD: 10/23/[address] [facility] [address]: Haleigh MASTERSON,Zimmerman SOURCE: URINE ENTR: 10/23/11-[address]: Willie MASTERSON,[facility] SPDC: ORDERED: URINE C S QUERIES: MEDENT REQUISITION # [id number] ACT WKST: UR 10/25/11 #1 Procedure Result Verified Site > URINE CULTURE SENSITIVI Final 10/25/11- 0856 ML FINAL: NO GROWTH DAY 2 (<1,000 CFU/mL) - [facility] Permit #[id number] [address] [place] [address] DEPARTMENT OF PATHOLOGY, [address] [place] [address] [facility] Permit #[id number] Fox Perez M.D. Dam Attendant 25 RUN DATE: 07/03/11 [facility] NMI LIVE PAGE 1 RUN TIME: 4191 Specimen Inquiry RUN USER: INTERFACE Name: CAMELIA MEAD Status: REG REF Re06/30/11 Age/Sex: 56/M Unit#: [id number] Location: [facility] : 55 SPEC #: [id number] DOUG: 06/30/11 STATUS: COMP REQ #: [id number] RECD: 06/30/[address] [facility] [address]: Maryanne JIMENEZPElizabeth SOURCE: NASOPHARYN ENTR: 06/30/11 [facility] DR: SPDLUIS: ORDERED: PERTUSSIS NISULA QUERIES: MEDENT REQUISITION # [id number] ACT WKST: SO 07/03/11 #1 Procedure Result Verified Site > BORDETELLA PERTUSSIS Final 07/03/11- 0753 ML BORDETELLA BY RAPID PCR Negative for Bordetella pertussis/parapertussis DNA Laboratory developed test. Test performed by: [facility] [address], [place] [address] - [facility] Permit #[id number] [address] [place] [address] DEPARTMENT OF PATHOLOGY, [address] [place] [address] [facility] Permit #[id number] Derrick Astudillo M.D. Director Anali Pham M.D. Dam Attendant Procedures Date Code Description Status 08/09/2018 52062 EKG Tracing & Interpretation Completed 07/28/2018 95399 ECHO Transthoracic, Real-Time 2D With Doppler And Color Completed Flow 07/28/2018 16022 ECHO Transthoracic, Real-Time 2D With Doppler And Color Completed Flow 04/24/2017 72868 ECHO Transthoracic, Real-Time 2D With Doppler And Color Completed Flow 04/24/2017 20979 ECHO Transthoracic, Real-Time 2D With Doppler And Color Completed Flow 12/31/2016 35795 EKG Tracing & Interpretation Completed 10/28/2016 67187 Cath PLMT&NJX L Ventriculog Img S&I Completed 10/10/2016 62621 Sleep Study Unattended,HRT Rate,Oxygen Sat,Resp Completed Effort/Airflow 10/07/2016 87650 Color Flow Doppler/Interp & Reprt Completed 10/07/2016 69998 Pulse Wave/Continuous-Interp.RPT Completed 10/07/2016 66695 Echocardiography, Transesophageal, Real Time W/Image 2D Completed W/W/O M-M 09/29/2016 56527 Stress Test Completed 07/09/2016 60907 ECHO Transthoracic, Real-Time 2D With Doppler And Color Completed Flow 03/12/2015 53617 Remove Impacted Cerumen Completed 07/25/2014 75374 EKG Tracing & Interpretation Completed 05/01/2014 78033 ECHO Transthoracic, Real-Time 2D With Doppler And Color Completed Flow 10/23/2011 10275 EKG Tracing & Interpretation Completed 07/03/2011 29841 Noninvasive Ear Or Pulse Oximetry For Oxygen Saturation Completed 07/03/2011 29621 Inhalation TX For Acute Airway Obstruction Completed W/Nebulizer/Inhaler 04/03/2008 43092 EKG Tracing & Interpretation Completed 04/03/2008 23808 EKG Tracing & Interpretation Completed 10/23/2006 88093 EKG Tracing & Interpretation Completed 10/06/2005 [id number] Colonoscopy Completed Encounters Type Date Location Provider Dx Diagnosis Office Visit 10/11/2018 [facility] Britneybandar Urbina, M54.31 Sciatica, right 12:10p Medicine - [facility] Fox side I25.10 Athscl heart disease of [place] coronary artery w/o ang pctrs Z12.11 Encounter for screening for malignant neoplasm of colon I10 Essential (primary) hypertension Office Visit 08/09/2018 1:30p [facility] Blayne Kostas Z95.2 Presence of Of Cristofer Weir M.D., prosthetic heart FACC, FASNC valve Office Visit 07/21/2018 10:00a [facility] Internal Elizabeth Varn, I10 Essential Medicine - [facility] N.P. 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 Z12.11 Encounter for screening for malignant neoplasm of colon E66.9 Obesity, unspecified Z68.34 Body mass index (BMI) 34.0-34.9, adult Office Visit 03/05/2018 [facility] Internal Elizabeth Z23 Encounter for 3:40p Medicine-Manjeet Madden, N.P. immunization K13.70 Unspecified lesions of oral mucosa Office Visit 11/04/2017 [facility] Internal Britney N41.1 Chronic 8:30a Medicine-Manjeet Urbina M.D. prostatitis H61.23 Impacted cerumen, bilateral Office Visit 09/18/2017 1:40p [facility] Internal Bao Maximino, N41.0 [facility] I10 Essential (primary) hypertension Office Visit 08/05/2017 Pulmonology And Stephanie G47.33 Obstructive sleep 1:45p Sleep Services Of IVAN Garvin, FROILAN, apnea (adult) [facility] ALUMINUM BOAT INSPECTOR-BC (pediatric) I15.9 Secondary hypertension, unspecified Z68.34 Body mass index (BMI) 34.0-34.9, adult Office Visit 06/11/2017 [facility] Stephanie G47.33 Obstructive sleep 8:30a [facility] Garvin RN, apnea (adult) [facility] ALUMINUM BOAT INSPECTOR-BC (pediatric) Z68.34 Body mass index (BMI) 34.0-34.9, adult Office Visit 04/28/2017 2:15p [facility] Blayne Kostas I77.810 Thoracic aortic Of Cristofer Weir M.D., ectasia FAC, [facility] Q23.1 Congenital insufficiency of aortic valve 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 rhinitis, unspecified R05 Cough H53.10 Unspecified subjective visual disturbances F51.02 Adjustment insomnia Z91.19 Patient's noncompliance w oth medical treatment and regimen Office Visit 01/01/2017 [facility]Not[facility] Víctor Tan J30.9 Allergic 10:50a Alejandra Urbina M.D. rhinitis, unspecified K21.9 Gastro-esophageal reflux disease without esophagitis R05 Cough Office Visit 12/31/2016 2:30p [facility] Blayne Kenyon I25.10 Athscl heart Of Cristofer Weir M.D., disease of [place] FAC, FASSD coronary artery w/o ang pctrs Office Visit 12/25/2016 11:10a DoNotUse Cristofer Tan J30.9 Allergic Víctor Urbina M.D. rhinitis, [facility] unspecified d R39.9 Unsp symptoms and signs involving the genitourinary system K59.00 Constipation, unspecified R05 Cough Office Visit 11/03/2016 [facility] Seymour, Z48.812 Encntr for surgical 3:20p Cardiology Of Fox, FACC, aftcr following Scale Technician AT [facility] surgery on the circ sys Office Visit 10/08/2016 DoNotUse Cristofer Tan Q23.1 Congenital 9:50a Víctor Urbina M.D. insufficiency of Medicine-[facility] aortic valve od D64.9 Anemia, unspecified Office Visit 10/01/2016 [facility] Blayne Kenyon Q23.1 Congenital 10:00a Of Cristofer Weir M.D., insufficiency of FACC, FASNC aortic valve Office Visit 09/08/2016 Pulmonology And Naida R06.83 Snoring 8:00a Sleep Services Of MD Cristofer Soto R40.0 Somnolence R12 Heartburn J30.9 Allergic rhinitis, unspecified E66.09 Other obesity due to excess calories Z68.34 Body mass index (BMI) 34.0-34.9, adult Office 07/16/2016 [facility] Internal Britney K21.9 Gastro-esophageal Visit 8:50a LamineManjeet Urbina reflux disease M.D. without esophagitis H11.31 Conjunctival hemorrhage, right eye R10.9 Unspecified abdominal pain Office 05/01/2016 [facility]Not[facility] Internal Britney K21.9 [facility]astro-es[facility] reflux disease M.D. without esophagitis R06.83 Snoring G47.00 Insomnia, unspecified E78.5 Hyperlipidemia, unspecified F41.9 Anxiety disorder, unspecified R10.11 Right upper quadrant pain R10.9 Unspecified abdominal pain I10 Essential (primary) hypertension Z23 Encounter for immunization Office Visit 05/10/2015 8:30a [facility] Internal Britney Urbina K58.9 Irritable bowel Medicine - [facility] M.DFady syndrome without diarrhea F41.9 Anxiety disorder, unspecified R10.9 Unspecified abdominal pain I10 Essential (primary) hypertension Office Visit 05/02/2015 [facility] Internal Britney E78.0 Pure hypercholesterolemia 1:40p Lamine Urbina M.D. [facility] Z11.59 Encounter for screening for other viral diseases Office Visit 03/12/2015 4:00p [facility] Internal Bao Stanton, J01.90 Acute sinusitis, Medicine - [facility] DIE CUTTER unspecified H66.92 Otitis media, unspecified, left ear H10.022 Other mucopurulent conjunctivitis, left eye H61.22 Impacted cerumen, left ear Office Visit 02/22/2015 2:30p [facility] Internal Nurse Visit A I10 Essential ( primary) Medicine - hypertension [facility] Office Visit 02/06/2015 8:50a [facility] Internal Britney K58.9 Irritable bowel Lamine Urbina M.D. syndrome without [facility] diarrhea F41.9 Anxiety disorder, unspecified Z23 Encounter for immunization I10 Essential (primary) hypertension E78.0 Pure hypercholesterolemia Office Visit 01/22/2015 3:00p [facility] Internal Torres Israel, K59.00 Constipation, Medicine - DIE CUTTER unspecified [facility] F41.9 Anxiety disorder, unspecified Office Visit 07/25/2014 2:00p [facility] Blayne Kenyon 424.1 Aortic Valve Of Cristofer Weir M.D., Disorder FAC, FASSD 786.09 Dyspnea & Respiratory Abnormalities Other Office Visit 05/10/2014 1:10p [facility] Internal Britney V70.0 Examination Medicine - Faye Urbina M.D. General Medical Routine AT Health Care Facility 401.9 Hypertension Unspec V12.72 History Personal Colonic Polyps Office Visit 03/22/2014 10:00a [facility] Internal Medicine - Michael Gonzáles, ALUMINUM BOAT INSPECTOR 786.2 Cough [facility] 530.81 Esophageal Reflux 995.3 Allergy Unspec Office Visit 10/04/2013 9:20a [facility] Internal Yael oRse, 995.3 Allergy Unspec [facility] M.DFady 530.81 Esophageal Reflux 272.0 Hypercholesterolemia Pure 401.1 Hypertension Benign 455.9 Hemorrhoidal Skin Tags Residual Office Visit 12/21/2012 11:20a [facility] Internal Elizabeth Madden, 466.0 Bronchitis Acute Medicine - [facility] N.P. Office Visit 04/28/2012 10:20a [facility] Internal Maura Ricardo, 461.9 Sinusitis [facility] M.[facility]apito, FACP Unspec Office Visit 04/07/2012 4:20p [facility] Internal Yael Rose, 466.0 Bronchitis [facility] M.DFady 461.9 Sinusitis Acute Unspec Office Visit 02/25/2012 9:00a [facility] Internal Maura Ricardo, 401.1 Hypertension Benign [facility] M.DF[facility], FACP 493.90 Asthma Unspec W/O Status Asthmaticus V04.81 Need For Prophylactic Vaccination & Inoculation/Influenza Office Visit 02/02/2012 3:40p [facility] Internal Elizabeth Madden, 466.0 Bronchitis Acute Medicine - N.P. [facility] Office Visit 10/23/2011 9:00a [facility] Internal Maura Ricardo, V70.0 Examination Medicine - MNelda, FACP General Medical [facility] Routine AT Health Care Facility 401.1 Hypertension Benign 272.0 Hypercholesterolemia Pure 602.8 Prostate Disorder Spec Other 530.81 Esophageal Reflux V04.89 Need For Prophylactic Vaccination & Inoculation Other Virus V06.1 Bqfwactszw-Zorgywp-Eqgkmzpg Combined (DTaP) Office Visit 08/14/2011 8:40a [facility] Internal Elizabeth Madden, 787.3 Flatulence Medicine - N.P. Eructation & Gas [facility] Pain Office Visit 07/10/2011 9:40a [facility] Internal Maura Ricardo, 388.70 Otalgia & Earache Medicine - M.D., FACP Unspec [facility] 307.49 Sleep Disorder Other Office Visit 07/03/2011 11:40a [facility] Internal Maura Ricardo, 786.2 Cough Medicine - M.D., FACP [facility] Office Visit 06/30/2011 1:00p [facility] Services Internal Elizabeth Varn, 466.0 Bronchitis Acute Medicine - N.P. C[facility] Office Visit 05/28/2011 10:00a [facility] Internal Elizabeth Madden, 372.00 Conjunctivitis Acute Medicine - N.P. Unspec Ccmob 465.9 URI Upper Respiratory Infections Acute Unspec Sites Office Visit 02/17/2011 10:40a DO Not Use Scale Technician-Haley Ricardo, 786.03 Apnea M.D., FACP 272.4 Hyperlipidemia Other Unspec 401.1 Hypertension Benign v04.81 Need For Prophylactic Vaccination & Inoculation/Influenza Office Visit 06/28/2009 4:30p DO Not Use Maura Haleigh, 465.9 URI Upper Scale TechnicianSophia Braxton, FACP Respiratory Infections Acute Unspec Sites 530.81 Esophageal Reflux Office Visit 11/22/2008 DO Not Use Maura Haleigh, 466.0 Bronchitis Acute 3:00p Serena Braxton, FACP Office Visit 11/16/2008 DO Not Use Maura Haleigh, 272.4 Hyperlipidemia Other 2:30p Scale Technician-[place] Kristopher.Gordo., FACP Unspec 530.81 Esophageal Reflux Office Visit 09/20/2008 3:45p DO Not Use Mauraquan Ricardo, 388.70 Otalgia & Scale Technician-Haley Heaton., FACP Earache Unspec 786.2 Cough Office Visit 09/13/2008 DO Not Use Maura Haleigh, 786.2 Cough 11:00a Serena Braxton, FACP Office Visit 08/22/2008 DO Not Use Maura Haleigh, 381.81 Eustachian Tube 3:15p Scale Technician-Haley Heaton., FACP Dysfunction Office Visit 08/14/2008 DO Not Use Maura Haleigh, 465.9 URI Upper 12:15p Serena Braxton, FACP Respiratory Infections Acute Unspec Sites Office Visit 08/11/2008 DO Not Use Elizabeth 372.30 Conjunctivitis 10:30a Scale Technician-[place] Varn, N.P. Unspec 382.9 Otitis Media Unspec Office Visit 05/19/2008 DO Not Use Maura Haleigh, 272.4 Hyperlipidemia Other 3:30p Serena Braxton, FACP Unspec Office Visit 04/03/2008 DO Not Use Maura Haleigh, V70.0 Examination General 10:15a Serena Braxton, FACP Medical Routine AT Health Care Facility 272.4 Hyperlipidemia Other Unspec 530.81 Esophageal Reflux 401.1 Hypertension Benign Office 06/25/2007 DO Not Use Maura Haleigh, 300.00 Anxiety State Unspec Visit 4:30p Serena Braxton, FACP Office 06/11/2007 DO Not Use Elizabeth 466.0 Bronchitis Acute Visit 11:45a Scale Technician-[place] Varn, N.P. Office 12/08/2006 DO Not Use Maura Haleigh, 272.0 Hypercholesterolemia Visit 2:15p Serena Braxton, FACP Pure 285.9 Anemia Unspec Office Visit 10/23/2006 10:00a DO Not Use Maura Haleigh, V70.0 Examination Cristofer-Haley Braxton, FACP General Medical Routine AT Health Care Facility 401.1 Hypertension Benign Plan of Treatment Future Appointment(s):11/29/2018 3:40 pm - Kumar Cheema MD at [facility] Qzcxdhsuiis52/14/2019 11:10 am - Britney Urbina M.D. at [facility] Internal Medicine - Ccmob11/08/2018 - Britney Urbina M.D.B34.9 Viral infection, unspecifiedComments:we discussed hydration , tylenol for pain /feversoft foods and let it run course
--- OUTSIDE RECORDS SUMMARY | 2018-12-04 16:08 | XMS REPORT | Continuity of Care Document ---
:1955 External Reference #:[id number] Author Name Britney Urbina M.D. (transmitted by agent of provider Vicki Bullard) Address [address], [place] [address] Care Team Providers Name Role Phone Ross Tapia MD - Urology Care Team Information Nut Cracker [phone] Bryon Curtis MD - Allergy & Care Team Information Nut [facility]acker Immunology Britney Urbina MD - Internal Care Team Information [facility] [employer] Medicine Problems Active Problems Provider Date Gastroesophageal reflux disease Maura Ricardo M.D., JAKE Onset: 02/17/2011 Hyperlipidemia Mauar Ricardo M.D., JAKE Onset: 02/17/2011 Bicuspid aortic [...] 62 Aortic valve disorder Blayne Weir M.D., [facility], [facility] Onset: 07/25/2014 Note: bicuspid aortic valve s/p AVR Encounter for planned postprocedural Zurdo Seymour M.D., [facility], [facility] Onset: wound closure Multi vessel coronary artery disease Britney Urbina M.D. Onset: 11/03/2016 Cyst of kidney Britney Urbina M.D. Onset: 02/03/2017 Note: L complex cyst Thoracic aortic ectasia Blayne Weir M.D., [facility], Onset: 04/28/2017 [facility] Obstructive sleep apnea syndrome Stephanie Garvin DNP, RN, [facility] Onset: Secondary hypertension Stephanie Garvin DNP, RN, [facility] Onset: 08/05/2017 Note: NSAIDS Psoriasis Britney Urbina M.D. Onset: 04/19/2018 Heart valve replacement Blayne Weir M.D., [facility], [facility] Onset: 08/09/2018 Social History Type Date Description Comments Sex Unknown Tobacco Use Start: Unknown Never Smoked Cigarettes Smoking Status Reviewed: 12/01/18 Never Smoked Cigarettes ETOH Use Consumes 2 [...] Qnty Indications Ordering Date Provider Amlodipine Besylate 1/2 by mouth every 90tabs I10 Britney Urbina, 2018 day (per pt) M.D. 10mg Tablets Alprazolam take 1 tablet by 30tabs F41.1 Elizabeth Madden, 07/21/2018 1mg mouth 2 times a day N.P. Tablets if needed for anxiety Shingrix intramuscular x 1 1units Britney Urbina, 04/19/2018 50mcg/0.5ML then repeat in 4 M.D. Suspension Rec months Amoxicillin take 4 tablets by 4tabs Blayne Kenyon 12/29/2017 500mg mouth 1 hour before Fox Weir, Tablets dental procedure [facility] Atorvastatin Calcium take 1 tablet by 90tabs Britney Urbina, 11/26/2017 mouth once daily at M.D. 20mg Tablets bedtime Omeprazole 1 by mouth bid 60caps Britney Urbina, 01/06/[address] Auvi-Q prn wasp stings Unknown 0.15mg/0.15ML Solution Auto-Inject Probiotic 1 by mouth every day Unknown Capsules Aspir-81 1 by mouth every day Unknown 81mg Tablets Multi-Vitamin 1 by mouth every day Unknown Tablets History Medications Benzonatate 1 capsule at 14caps Britney Swanan, 11/10/2018 - 100mg night as needed M.D. 11/24/2018 Capsules for cough Metoprolol Tartrate 1 by mouth once 90tabs I25.10 Blayne Kenyon 11/01/2018 - a day Fox Weir, 11/01/2018 75mg Tablets FACC, FASNC Amlodipine Besylate 1 by mouth every 90tabs I10 Britney Urbina, 2018 - day M.D. 11/02/2018 5mg Tablets Immunizations CPT Code Status Date Vaccine Reaction Lot # [id number] Given 03/05/2018 Influenza Virus Vaccine, No immediate [id number] Quadrivalent, Split, reaction...[id number] Preservative Free 61015 Given 01/21/2017 Pneumonia Vaccine [id number] 12119 Given 01/21/2017 Influenza Virus Vaccine, [id number] Quadrivalent, Split, Preservative Free 71135 Given 05/01/2016 Influ Virus Vaccine, [id number] Quadrivalent, Split Virus, [place] [address] Given 02/06/2015 Influenza Virus Vaccine, [id number] Quadrivalent, Split, Preservative Free [id number] Given 04/29/2013 Fluzone Vaccine [id number] Given 02/25/2012 Fluvirin Im 3Yrs And Older [id number] 36698 Given 10/23/2011 Zoster (Zostavax) [id number] 55713 Given 10/23/2011 Tdap - [id number] Tetanus/Diptheria/Acellular Pertussis 47435 Given 02/17/2011 Influenza Virus 3Yrs & Over [id number] 72692 Given 05/03/2009 Influenza Virus Vaccine, Pandemic Formulation 47848 Given 05/03/2009 Influenza Virus 3Yrs & Over 67521 Given 05/03/2009 Administration Swine Flu Shot 32438 Given 02/11/2008 Influenza Virus 3Yrs & Over Vital Signs Date Vital Result Comment 12/01/2018 11:30am Height 71.5 inches 5'11.50" Weight 246.00 lb Heart Rate 76 /min BP Systolic Sitting 143 mmHg Rue reg cuff BP Diastolic Sitting 81 mmHg Rue reg cuff Body Temperature 97.5 F O2 % BldC Oximetry 98 % BMI (Body Mass Index) 33.8 kg/m2 11/08/2018 12:06pm Height 71.5 inches 5'11.50" Weight 247.00 lb Heart Rate 78 /min BP Systolic Sitting 138 mmHg Rue reg cuff BP Diastolic Sitting 84 mmHg Rue reg cuff Body Temperature 97.5 F O2 % BldC Oximetry 98 % BMI (Body Mass Index) 34.0 kg/m2 Results Description No Information Available Procedures Date Code Description Status 08/09/2018 06624 EKG Tracing & Interpretation Completed 07/28/2018 68613 ECHO Transthoracic, Real-Time 2D With Doppler And Color Completed Flow 07/28/2018 34261 ECHO Transthoracic, Real-Time 2D With Doppler And Color Completed Flow 10/06/2005 73947094 Colonoscopy Completed Medical Devices Description No Information Available Encounters Type Date Location Provider Dx Diagnosis Office Visit 11/29/2018 [facility] Dermatology Kumar Cheema MD L23.9 Allergic contact 3:40p dermatitis, unspecified cause Office Visit 11/08/2018 [facility] Internal Britney Urbina B34.9 Viral infection , 12:10p Medicine - [facility] M.D. unspecified Office Visit 10/11/2018 [facility] Internal Britney Urbina M54.31 Sciatica, right 12:10p [facility] I25.10 Athscl heart disease of [place] coronary artery w/o ang pctrs Z12.11 Encounter for screening for malignant neoplasm of colon I10 Essential (primary) hypertension Office Visit 08/09/2018 1:30p [facility] Blayne Kostas Z95.2 Presence of Of Cristofer Weir M.D., prosthetic heart FACC, FASNC valve Office Visit 07/21/2018 10:00a [facility] Internal Elizabeth Madden, I10 Essential Medicine - Ccm[facility] N.P. (primary) hypertension F41.1 Generalized anxiety disorder Assessments Date Code Description Provider 12/01/2018 J30.2 Other seasonal allergic rhinitis Britney Urbina M.D. 11/29/2018 L23.9 Allergic contact dermatitisKumar MD unspecified cause 11/08/2018 B34.9 Viral infection, unspecified Britney Urbina M.D. 11/01/2018 I10 Essential (primary) hypertension Nurse Visit A 10/11/2018 M54.31 Sciatica, right side Britney Urbina M.D. 10/11/2018 I25.10 Atherosclerotic heart disease of Britney Urbina M.D. [place] coronary artery with 10/11/2018 Z12.11 Encounter for screening for Britney Urbina M.D. malignant neoplasm of colon 10/11/2018 I10 Essential (primary) hypertension Britney Urbina M.D. 08/09/2018 Z95.2 Presence of prosthetic heart valve Blayne Weir M.D., [facility], [facility] 07/28/2018 I77.810 Thoracic aortic ectasia Blayne Weir M.D., [facility], [facility] 07/28/2018 I77.810 Thoracic aortic ectasia Traveling ECHO 1 07/21/2018 I10 Essential (primary) hypertension Elizabeth Madden, N.P. 07/21/2018 F41.1 Generalized anxiety disorder Elizabeth Madden [place] Plan of Treatment Future Appointment(s):01/31/2019 11:10 am - Britney Urbina M.D. at [facility]2018 - Britney Urbina M.D.J30.2 Other seasonal allergic rhinitisComments:use antihistamine once a day and nose spray once a day to help with nasal congestion Functional Status Description No Information Available Mental Status Description No Information Available Referrals Refer to Dr Reason for Referral Status Appt Date Emmett Matamoros MD Received Partial 12/10/2018 [address] [facility] [address] [place], [place] [id number] [phone]
[2018-12-04 16:12] VITALS: BP 141/88
--- NOTE | 2018-12-04 16:41 | UC ---
Respiratory Complaint HPI - HPI Summary HPI Summary: was sick in October and dx URI and OTC meds. got better after 2 weeks. started feeling poorly again 3 days ago, cough worse since last night, sputum yellow today and feels like he has coughing spasms. Saw PCP 3-4 days ago and dx: allergies. - History of Current Complaint Chief Complaint: UCGeneralIllness Stated Complaint: COUGH Time Seen by Provider: 12/04/18 16:14 Hx Obtained From: Patient Onset/Duration: Gradual Onset Timing: Constant Pain Intensity: 0 Character: Cough: Nonproductive Aggravating Factors: Recumbent Position Alleviating Factors: Nothing Associated Signs And Symptoms: Positive: Nasal Congestion. Negative: Dyspnea, Fever, Chills, Hemoptysis, Dizziness, Calf Pain, Calf Swelling - Allergies/Home Medications Allergies/Adverse Reactions: Allergies Allergy/AdvReac Type Severity Reaction Status Date / Time pollen extracts Allergy Sneezing Verified 12/04/18 16:13 cephalexin AdvReac diarrhea Verified 12/04/18 16:13 and upset stomach yellow jacket wasps Allergy Anaphylatic Uncoded 12/04/18 16:13 Shock Home Medications: Home Medications guaiFENesin/CODIEN 100MG-10MG* [Robitussin AC 100Mg-10Mg*] 5 ml PO BEDTIME 12/04 [History Confirmed 12/04/18] PMH/Surg Hx/FS Hx/Imm Hx Previously Healthy: Yes Endocrine History: Dyslipidemia Cardiovascular History: Hypertension Psychological History: Anxiety - Surgical History Surgical History: Yes Surgery Procedure, Year, and Place: Open heart 11/2016 - 2x bypass, stabilization of thoracic aneurysm and heart valve replacement. Appendectomy, testes for infertility - Family History Known Family History: Positive: Non-Contributory - Social History Occupation: Employed Full-time Lives: With Family Alcohol Use: Weekly Substance Use Type: None Smoking Status (MU): Never Smoked Tobacco Review of Systems All Other Systems Reviewed And Are Negative: Yes Constitutional: Positive: Fatigue. Negative: Fever, Chills Skin: Positive: Negative ENT: Positive: Sinus Congestion, Other - PND. Negative: Sore Throat Respiratory: Positive: Cough. Negative: Shortness Of Breath Cardiovascular: Positive: Negative Gastrointestinal: Positive: Negative. Negative: Abdominal Pain Neurological: Positive: Negative. Negative: Headache Psychological: Positive: Negative Is Patient Immunocompromised?: No Physical Exam Triage Information Reviewed: Yes Appearance: Well-Appearing, No Pain Distress, Well-Nourished Vital Signs: Initial Vital Signs Temp 97.3 F 12/04/18 16:07 Pulse 72 12/04/18 16:07 Resp 16 12/04/18 16:07 BP 141/88 12/04/18 16:07 Pulse Ox 100 12/04/18 16:07 Vital Signs Reviewed: Yes ENT: Positive: Nasal congestion, TMs normal. Negative: Nasal drainage, Hoarse voice, Sinus tenderness Neck exam: Normal Neck: Positive: No Lymphadenopathy Respiratory: Positive: Lungs clear, Other: - frequent dry deep cough Cardiovascular: Positive: RRR Neurological Exam: Normal Neurological: Positive: Alert Psychological Exam: Normal Skin Exam: Normal Skin: Negative: Rashes Respiratory Course/Dx - Differential Dx/Diagnosis Differential Diagnosis/HQI/PQRI: Asthma, Bronchitis, Lower Resp Infection, Sinusitis Provider Diagnosis: Bronchitis Discharge - Sign-Out/Discharge Documenting (check all that apply): Patient Departure All imaging exams completed and their final reports reviewed: No Studies - Discharge Plan Condition: Stable Disposition: HOME Prescriptions: Azithromyxin VALERIA (NF) [Z-Valeria (Zithromax) 250 mg tabs #6] 2 tab PO .TODAY, THEN 1 DAILY #6 tab predniSONE TAB* [Deltasone TAB*] 50 mg PO DAILY #3 tab Patient Education Materials: Acute Bronchitis (ED) Referrals: Britney Urbina MD [Primary Care Provider] - 3 Days (if no better and to recheck blood pressure) Additional Instructions: Rest and drink plenty of fluids Start antibiotic and prednisone and take as directed report to ER if symptoms worsen - Billing Disposition and Condition Condition: STABLE Disposition: Home
== END 2018-12-04 16:50 | disposition home or self-care (01) ==
LOC: UCEAST 16:04
DX: J40 Bronchitis, not specified as acute or chronic (principal); E78.5 Hyperlipidemia, unspecified; I10 Essential (primary) hypertension; F41.9 Anxiety disorder, unspecified; Z95.2 Presence of prosthetic heart valve
CPT/HCPCS: 99212; G0463

== ENCOUNTER 2021-12-18 21:04 | Inpatient (IN) ==
[2021-12-18 22:13] LABS: Hematocrit 23 % (42-52); Mean Corpuscular HGB Conc 30 g/dL (31-36); Mean Corpuscular Hemoglobin 17 pg (27-31); Mean Corpuscular Volume 55 fL (80-94); Red Blood Count 4.22 10^6 /uL (4.18-5.48); Red Cell Distribution Width 22 % (10-15)
[2021-12-18] MEDS ORDERED: Furosemide 20 mg/2 ml IV VIAL IV SLOW PU ONE (22:15)
[2021-12-18 22:20] LABS: Albumin 4.1 g/dL (3.2-5.2); Albumin/Globulin Ratio 1.5 (1-3); Calcium 8.4 mg/dL (8.6-10.3); Globulin 2.8 g/dL (2-4); Total Bilirubin 1.6 mg/dL (0.2-1.0); Total Protein 6.9 g/dL (6.4-8.9); eGFR CKD-EPI 46.2 (>60)
[2021-12-18 22:38] LABS: Potassium 3.8 mmol/L (3.5-5.0)
[2021-12-18 23:06] LABS: ABS Eosinophils 0.1 10^3/ul (0-0.6); ABS Lymphocytes 0.6 10^3/ul (1.0-4.8); ABS Monocytes 0.4 10^3/ul (0-0.8); ABS Neutrophils 3.8 10^3/ul (1.5-7.7); Eosinophil % 1.9 %; Lymphocyte % 12.6 %; Mean Platelet Volume 8.6 fL (7.4-10.4); Nucleated Red Blood Cells % 0.3; Platelet Count 208 10^3/uL (150-450)
[2021-12-18 23:08] LABS: Acanthocytes 3+; Anisocytosis 2+; Microcytosis 2+; Target Cells 1+
[2021-12-18 23:09] LABS: Schistocytes 2+
[2021-12-19] MEDS ORDERED: Albuterol HFA INHALER 8 gm MDI INH PRN ×2 (00:15→00:27)
[2021-12-19] MEDS: Enoxaparin 40 MG/0.4 ML SYR SUBCUT SCH ×2 (01:01→21:07)
[2021-12-19] MEDS ORDERED: Levalbuterol 0.63MG/3ML NEB UNIT OF USE INH PRN (01:03)
[2021-12-19 02:29] LABS: Urine Osmo 225 mOsm/kg (150-1150)
[2021-12-19 05:39] LABS: LDH 353 U/L (140-271); Total Iron Binding Capacity 448 mcg/dL (250-450); Transferrin 320 mg/dL (203-362)
[2021-12-19 05:44] LABS: % Iron Saturation 4 % (15-55); Iron < 20 ug/dL (50-212); Unsaturated Iron Binding 428 ug/dL
[2021-12-19 06:57] LABS: Albumin 3.7 g/dL (3.2-5.2); Albumin/Globulin Ratio 1.4 (1-3); Calcium 8.1 mg/dL (8.6-10.3); Globulin 2.7 g/dL (2-4); Potassium 3.4 mmol/L (3.5-5.0); Total Bilirubin 1.9 mg/dL (0.2-1.0); Total Protein 6.4 g/dL (6.4-8.9); eGFR CKD-EPI 46.9 (>60)
[2021-12-19] MEDS ORDERED: Potassium Chlor 20 meq TAB.ER PO ONE (07:25)
[2021-12-19] MEDS: Mometasone/Formoter 200/5 MDI INH SCH ×2 (07:33→19:47)
[2021-12-19] MEDS ORDERED: Furosemide 40 mg/4 ml IV VIAL IV ONE (08:00)
[2021-12-19 08:22] LABS: ABS Eosinophils 0.1 10^3/ul (0-0.6); ABS Lymphocytes 0.8 10^3/ul (1.0-4.8); ABS Monocytes 0.6 10^3/ul (0-0.8); ABS Neutrophils 3.8 10^3/ul (1.5-7.7); Eosinophil % 2.2 %; Hematocrit 24 % (42-52); Hemoglobin 7.5 g/dL (14.0-18.0); Lymphocyte % 14.1 %; Mean Corpuscular HGB Conc 31 g/dL (31-36); Mean Corpuscular Hemoglobin 18 pg (27-31); Mean Corpuscular Volume 58 fL (80-94); Mean Platelet Volume 8.6 fL (7.4-10.4); Nucleated Red Blood Cells % 0.2; Platelet Count 183 10^3/uL (150-450); Red Blood Count 4.11 10^6 /uL (4.18-5.48); Red Cell Distribution Width 23 % (10-15); White Blood Count 5.3 10^3/uL (3.5-10.8)
[2021-12-19] MEDS ORDERED: Mometasone/Formoter 200/5 MDI INH SCH (09:00)
[2021-12-19] MEDS ORDERED: Iron Sucrose 200 MG in NS 0.9% 100 ml BAG 100 ML IVPB SCH (10:00)
[2021-12-19] MEDS ORDERED: Perflutren Lipid Microsphere 3 ML VIAL ONE (10:39)
[2021-12-19] MEDS ORDERED: Furosemide 40 mg/4 ml IV VIAL IV SLOW PU ONE (16:00)
[2021-12-20] MEDS ORDERED: Iron Sucrose 200 MG in NS 0.9% 100 ml BAG 100 ML IVPB SCH (05:00)
[2021-12-20] MEDS: Mometasone/Formoter 200/5 MDI INH SCH (07:14)
[2021-12-20 08:31] VITALS: BP 96/57
== END 2021-12-20 08:45 | disposition short-term general hospital (02) | DRG 206 ==
LOC: ED 21:04 → EDHOLD 12-19 00:09 → SUATTDRO 12-19 00:09 → MEDTELE 12-19 02:21
PROVIDERS: ADMIT Internal Medicine; ATTEND Student in an Organized Health Care Education/Training Program

== ENCOUNTER 2022-04-25 12:15 | Inpatient (IN) ==
[2022-04-25 13:23] LABS: ABS Basophils 0.1 10^3/ul (0-0.2); ABS Eosinophils 0.1 10^3/ul (0-0.6); ABS Lymphocytes 0.9 10^3/ul (1.0-4.8); ABS Monocytes 0.5 10^3/ul (0-0.8); ABS Neutrophils 4.4 10^3/ul (1.5-7.7); Hematocrit 15 % (42-52); Hemoglobin 4.2 g/dL (14.0-18.0); Lymphocyte % 15.3 %; Mean Corpuscular HGB Conc 28 g/dL (31-36); Mean Corpuscular Hemoglobin 16 pg (27-31); Mean Corpuscular Volume 56 fL (80-94); Nucleated Red Blood Cells % 0.3; Platelet Count 245 10^3/uL (150-450); Red Blood Count 2.66 10^6 /uL (4.18-5.48); Red Cell Distribution Width 21 % (10-15); White Blood Count 6.1 10^3/uL (3.5-10.8)
[2022-04-25 14:00] LABS: Albumin 3.8 g/dL (3.2-5.2); Albumin/Globulin Ratio 1.7 (1-3); Calcium 8.4 mg/dL (8.6-10.3); Globulin 2.3 g/dL (2-4); Potassium 4.7 mmol/L (3.5-5.0); Total Bilirubin 0.4 mg/dL (0.2-1.0); Total Protein 6.1 g/dL (6.4-8.9)
[2022-04-25 14:07] LABS: Activated Partial Thrombo Time 39.9 seconds (26.0-38.0); INR 1.7 (0.88-1.18)
[2022-04-25] MEDS ORDERED: Pantoprazole VIAL 40 MG VIAL IV ONE (17:19)
[2022-04-25] MEDS ORDERED: Pantoprazole VIAL 40 MG VIAL IV SCH (21:00)
[2022-04-26] MEDS: Pantoprazole VIAL 40 MG VIAL IV SCH ×2 (05:33→17:27)
[2022-04-26 08:40] LABS: Hematocrit 20 % (42-52); Mean Corpuscular HGB Conc 30 g/dL (31-36); Mean Corpuscular Hemoglobin 19 pg (27-31); Mean Corpuscular Volume 63 fL (80-94); Mean Platelet Volume 8.6 fL (7.4-10.4); Platelet Count 210 10^3/uL (150-450); Red Blood Count 3.17 10^6 /uL (4.18-5.48); Red Cell Distribution Width 32 % (10-15); White Blood Count 6.9 10^3/uL (3.5-10.8)
[2022-04-26 08:56] LABS: Calcium 8.4 mg/dL (8.6-10.3); Magnesium 2.3 mg/dL (1.9-2.7); Potassium 4.5 mmol/L (3.5-5.0); eGFR CKD-EPI 56.9 (>60)
[2022-04-26] MEDS ORDERED: DAPAGLIFLOZIN 10 MG TAB (NF) PO SCH (09:00)
[2022-04-26 09:06] LABS: Anisocytosis 3+; Microcytosis 3+; Tear Drop Cells 1+
[2022-04-26 09:07] LABS: ABS Basophils 0.1 10^3/ul (0-0.2); ABS Eosinophils 0.2 10^3/ul (0-0.6); ABS Lymphocytes 1.2 10^3/ul (1.0-4.8); ABS Monocytes 0.5 10^3/ul (0-0.8); ABS Neutrophils 4.9 10^3/ul (1.5-7.7); Eosinophil % 2.8 %; Hypochromasia 1+; Lymphocyte % 17.9 %; Nucleated Red Blood Cells % 0.1; Polychromasia 1+
[2022-04-26 16:51] LABS: Hematocrit 26 % (42-52)
[2022-04-27] MEDS: Pantoprazole VIAL 40 MG VIAL IV SCH (05:23)
[2022-04-27 06:17] LABS: ABS Basophils 0.1 10^3/ul (0-0.2); ABS Eosinophils 0.2 10^3/ul (0-0.6); ABS Lymphocytes 1.2 10^3/ul (1.0-4.8); ABS Monocytes 0.5 10^3/ul (0-0.8); ABS Neutrophils 5.4 10^3/ul (1.5-7.7); Eosinophil % 2.9 %; Hematocrit 26 % (42-52); Lymphocyte % 15.6 %; Mean Corpuscular HGB Conc 31 g/dL (31-36); Mean Corpuscular Hemoglobin 21 pg (27-31); Mean Corpuscular Volume 68 fL (80-94); Mean Platelet Volume 8.5 fL (7.4-10.4); Platelet Count 190 10^3/uL (150-450); Red Blood Count 3.78 10^6 /uL (4.18-5.48); Red Cell Distribution Width 33 % (10-15); White Blood Count 7.4 10^3/uL (3.5-10.8)
[2022-04-27 06:51] LABS: Calcium 8.3 mg/dL (8.6-10.3); Magnesium 2.3 mg/dL (1.9-2.7); Potassium 4.3 mmol/L (3.5-5.0); eGFR CKD-EPI 56.4 (>60)
[2022-04-27] MEDS ORDERED: Midazolam 10 mg/10 ml VIAL 1 mg/ml 10 ml VIAL (10 mg) ONE (09:42)
[2022-04-27] MEDS ORDERED: fentaNYL 100 mcg/2 ml 50 MCG/ML VIAL ONE (09:43)
[2022-04-27 11:42] VITALS: BP 119/64
[2022-04-27] MEDS ORDERED: DAPAGLIFLOZIN 10 MG TAB (NF) PO SCH (12:00)
== END 2022-04-27 16:25 | disposition home or self-care (01) | DRG 663 ==
LOC: ED 12:15 → EDHOLD 16:15 → SUATTDRO 16:15 → EDHOLD 19:23 → SSU 22:20
PROVIDERS: ADMIT Internal Medicine; ATTEND Internal Medicine